=== PATIENT | male | born 1980 | race Two or more races ===

== ENCOUNTER 2022-10-13 23:43 | Inpatient (IN) | payer OTHER ==
[~2022-10-13] VITALS: Ht 165.1 cm; Wt 89.6 kg
[2022-10-14 00:27] LABS: Basophils # (auto) 0 10 ^3/uL (0-0.2); Basophils % (auto) 0.3 % (0.0-2.0); Eosinophils # (auto) 0 10 ^3/uL (0-0.8); Hematocrit 40.5 % (41.0-53.0); Hemoglobin 13.4 g/dL (13.5-17.5); Lymphocytes # (auto) 1.5 10 ^3/uL (0.4-5.4); Lymphocytes % (auto) 9.4 % (10.0-50.0); Mean Corpuscular Hemoglobin 28.6 pg (28.0-32.0); Mean Corpuscular Volume 86.5 fL (80.0-100.0); Monocytes # (auto) 1.6 10 ^3/uL (0-1.3); Monocytes % (auto) 9.4 % (0.0-12.0); Neutrophils # (auto) 13.3 10 ^3/uL (1.6-8.6); Neutrophils % (auto) 80.9 % (37.0-80.0); Red Blood Cells 4.68 10^6/uL (4.5-5.90); Red Cell Distribution Width 12.5 % (11.8-14.3); White Blood Cell 16.5 10^3/uL (4.4-10.8)
[2022-10-14] MEDS ORDERED: VANCOMYCIN 1GM/250ML 250 ML IV ONE (00:30)
[2022-10-14] MEDS ORDERED: PIPERACILLIN-TAZOB 3.375GM 100 ML IV ONE (00:30)
[2022-10-14 00:39] LABS: BUN/Creatinine Ratio 12.2; Calcium 9.2 mg/dL (8.5-10.1); Potassium 4.3 mmol/L (3.5-5.1)
[2022-10-14 00:42] LABS: Bilirubin, Total 0.5 mg/dL (0.2-1.0)
[2022-10-14] MEDS ORDERED: MORPHINE SULFATE INJ 2 MG/ml SYRG IV PRN (07:00)
[2022-10-14] MEDS ORDERED: DEXTROSE (50%) 50ML SYRG IV PRN (07:00)
[2022-10-14] MEDS ORDERED: VANCOMYCIN PER PHARMACY 0 MG IV SCH (07:00)
[2022-10-14] MEDS ORDERED: NITROGLYCERIN 0.4 MG SL TAB SL PRN (07:00)
[2022-10-14] MEDS: ENOXAPARIN SOD 40 MG/0.4 ML SYRINGE SC SCH (10:00)
[2022-10-14] MEDS: VANCOMYCIN 1GM/250ML 250 ML IV SCH ×2 (10:00→21:55)
[2022-10-14] MEDS: ACCU-CHEK COMFORT CURVE STRIP VI SCH ×4 (11:30→22:06)
[2022-10-14] MEDS: InsuLIN REG 1unit/0.01ml Soln (100units/ml) SC SCH ×4 (11:30→22:07)
[2022-10-14] MEDS: HYDROcodone-ACET 10/325MG TAB PO PRN (21:55)
[2022-10-14 22:00] VITALS: BP 150/90
[2022-10-15] MEDS: HYDROcodone-ACET 10/325MG TAB PO PRN (04:53)
[2022-10-15 05:00] VITALS: BP 125/76
[2022-10-15] MEDS: ACCU-CHEK COMFORT CURVE STRIP VI SCH ×4 (05:50→22:49)
[2022-10-15] MEDS: InsuLIN REG 1unit/0.01ml Soln (100units/ml) SC SCH ×4 (05:54→22:53)
[2022-10-15 06:42] LABS: Basophils # (auto) 0.1 10 ^3/uL (0-0.2); Basophils % (auto) 0.3 % (0.0-2.0); Eosinophils # (auto) 0 10 ^3/uL (0-0.8); Hematocrit 38.1 % (41.0-53.0); Hemoglobin 13.1 g/dL (13.5-17.5); Lymphocytes # (auto) 1.5 10 ^3/uL (0.4-5.4); Mean Corpuscular Hemoglobin 29.1 pg (28.0-32.0); Mean Corpuscular Hgb Conc. 34.3 g/dL (32.0-36.0); Mean Corpuscular Volume 84.9 fL (80.0-100.0); Monocytes # (auto) 1.9 10 ^3/uL (0-1.3); Monocytes % (auto) 11.1 % (0.0-12.0); Neutrophils # (auto) 13.4 10 ^3/uL (1.6-8.6); Neutrophils % (auto) 79.6 % (37.0-80.0); Red Blood Cells 4.48 10^6/uL (4.5-5.90); Red Cell Distribution Width 12.5 % (11.8-14.3); White Blood Cell 16.8 10^3/uL (4.4-10.8)
[2022-10-15 06:45] LABS: Potassium 3.5 mmol/L (3.5-5.1)
[2022-10-15 06:57] LABS: Albumin 2.7 g/dL (3.4-5.0); BUN/Creatinine Ratio 20.8; Bilirubin, Total 0.7 mg/dL (0.2-1.0); Calcium 8.7 mg/dL (8.5-10.1)
[2022-10-15] MEDS ORDERED: HYDROcodone-ACET 5/325MG TAB PO PRN ×2 (07:00)
[2022-10-15] MEDS ORDERED: MORPHINE SULFATE INJ 2 MG/ml SYRG IV PRN (07:00)
[2022-10-15] MEDS ORDERED: BUPIVACAINE W/ EPINEPH 0.5% MPF 30ML VIAL IJ ONE (08:45)
[2022-10-15] MEDS ORDERED: LIDOCAINE 1% HCL (LOCAL ANESTH.) INJ 20ML MDV ID ONE (08:45)
[2022-10-15 09:00] VITALS: BP 143/84
[2022-10-15] MEDS ORDERED: BUPIVACAINE 0.5% P/F INJ 10 ML VIAL ONE (09:20)
[2022-10-15] MEDS ORDERED: LIDOCAINE 1%HCL (LOCAL ANESTH) 10 ML MDV ONE (09:20)
[2022-10-15] MEDS: metFORMIN HYDROCHLORIDE 850 MG TAB PO SCH (10:08)
[2022-10-15] MEDS: ENOXAPARIN SOD 40 MG/0.4 ML SYRINGE SC SCH (10:08)
[2022-10-15] MEDS: VANCOMYCIN 1GM/250ML 250 ML IV SCH ×2 (10:09→22:46)
[2022-10-15] MEDS: ACETAMINOPHEN 325 MG TAB PO PRN (12:48)
[2022-10-15 12:49] VITALS: BP 138/81
[2022-10-15 17:10] VITALS: BP 142/87
[2022-10-15 22:00] VITALS: BP 134/83
[2022-10-16] MEDS: ACETAMINOPHEN 325 MG TAB PO PRN ×2 (00:33→21:57)
[2022-10-16 04:30] VITALS: BP 146/89
[2022-10-16] MEDS: ACCU-CHEK COMFORT CURVE STRIP VI SCH ×4 (06:49→21:59)
[2022-10-16] MEDS: InsuLIN REG 1unit/0.01ml Soln (100units/ml) SC SCH ×4 (06:51→22:14)
[2022-10-16 09:00] VITALS: BP 139/80
[2022-10-16 09:18] LABS: Basophils # (auto) 0 10 ^3/uL (0-0.2); Basophils % (auto) 0.2 % (0.0-2.0); Eosinophils # (auto) 0 10 ^3/uL (0-0.8); Hematocrit 36.8 % (41.0-53.0); Hemoglobin 12.3 g/dL (13.5-17.5); Lymphocytes # (auto) 1.2 10 ^3/uL (0.4-5.4); Lymphocytes % (auto) 6.9 % (10.0-50.0); Mean Corpuscular Hemoglobin 28.5 pg (28.0-32.0); Mean Corpuscular Hgb Conc. 33.4 g/dL (32.0-36.0); Mean Corpuscular Volume 85.1 fL (80.0-100.0); Monocytes # (auto) 1.4 10 ^3/uL (0-1.3); Monocytes % (auto) 8.1 % (0.0-12.0); Neutrophils % (auto) 84.8 % (37.0-80.0); Nucleated Red Blood Cells % 0.1 %; Red Blood Cells 4.32 10^6/uL (4.5-5.90); Red Cell Distribution Width 12.4 % (11.8-14.3); White Blood Cell 17.7 10^3/uL (4.4-10.8)
[2022-10-16 09:43] LABS: Albumin 2.4 g/dL (3.4-5.0); Calcium 8.2 mg/dL (8.5-10.1); Potassium 3.8 mmol/L (3.5-5.1)
[2022-10-16 09:46] LABS: BUN/Creatinine Ratio 19.4; Bilirubin, Total 0.7 mg/dL (0.2-1.0); Total Protein 5.9 g/dL (6.4-8.2)
[2022-10-16] MEDS: VANCOMYCIN 1GM/250ML 250 ML IV SCH ×2 (09:49→19:16)
[2022-10-16] MEDS: metFORMIN HYDROCHLORIDE 850 MG TAB PO SCH (09:50)
[2022-10-16] MEDS: ENOXAPARIN SOD 40 MG/0.4 ML SYRINGE SC SCH (09:50)
[2022-10-16 13:00] VITALS: BP 131/83
[2022-10-16 17:00] VITALS: BP 130/64
[2022-10-16 22:00] VITALS: BP 147/85
[2022-10-17] MEDS: VANCOMYCIN 1GM/250ML 250 ML IV SCH ×2 (02:54→10:40)
[2022-10-17 05:00] VITALS: BP 137/82
[2022-10-17] MEDS: ACCU-CHEK COMFORT CURVE STRIP VI SCH ×2 (06:29→11:44)
[2022-10-17] MEDS: InsuLIN REG 1unit/0.01ml Soln (100units/ml) SC SCH ×2 (06:30→11:45)
[2022-10-17 06:38] LABS: Basophils # (auto) 0 10 ^3/uL (0-0.2); Basophils % (auto) 0.2 % (0.0-2.0); Eosinophils # (auto) 0 10 ^3/uL (0-0.8); Eosinophils % (auto) 0.1 % (0.0-7.0); Hemoglobin 12.7 g/dL (13.5-17.5); Lymphocytes # (auto) 1.5 10 ^3/uL (0.4-5.4); Lymphocytes % (auto) 9.5 % (10.0-50.0); Mean Corpuscular Hgb Conc. 34.3 g/dL (32.0-36.0); Mean Corpuscular Volume 84.6 fL (80.0-100.0); Monocytes # (auto) 1.8 10 ^3/uL (0-1.3); Neutrophils # (auto) 12.8 10 ^3/uL (1.6-8.6); Neutrophils % (auto) 79.2 % (37.0-80.0); Nucleated Red Blood Cells % 0.7 %; Red Blood Cells 4.37 10^6/uL (4.5-5.90); Red Cell Distribution Width 12.5 % (11.8-14.3); White Blood Cell 16.1 10^3/uL (4.4-10.8)
[2022-10-17 07:03] LABS: Albumin 2.2 g/dL (3.4-5.0); Calcium 8.5 mg/dL (8.5-10.1); Potassium 3.8 mmol/L (3.5-5.1)
[2022-10-17 07:06] LABS: Bilirubin, Total 0.6 mg/dL (0.2-1.0)
[2022-10-17 09:00] VITALS: BP 134/85
[2022-10-17] MEDS ORDERED: CIPR500T4 PO (09:11)
[2022-10-17] MEDS: ENOXAPARIN SOD 40 MG/0.4 ML SYRINGE SC SCH (10:40)
[2022-10-17] MEDS: metFORMIN HYDROCHLORIDE 850 MG TAB PO SCH (10:40)
[2022-10-17 13:00] VITALS: BP 133/98
== END 2022-10-17 13:15 | DRG 872 ==
LOC: ER 23:43 → EEVIPCON 23:43 → OVERFLOW 10-14 06:53 → WEST WING 10-14 21:23
PROVIDERS: ADMIT Internal Medicine; ATTEND Internal Medicine
PROC: 0W980ZZ Drainage of Chest Wall, Open Approach (ICD-10-PCS; principal; 2022-10-15)
DX: A41.9 Sepsis, unspecified organism (principal); L02.212 Cutaneous abscess of back [any part, except buttock and flank]; L03.312 Cellulitis of back [any part except buttock and flank]; E11.628 Type 2 diabetes mellitus with other skin complications; Z20.822 Contact with and (suspected) exposure to COVID-19; D72.829 Elevated white blood cell count, unspecified
CPT/HCPCS: 36415; 71250; 80053; 80202; 82962; 85025; 87040; 87077; 87186; 87205; 87426; G0378; J1815; J2001; J3490

== ENCOUNTER 2022-10-21 17:47 | Inpatient (IN) | payer OTHER ==
[~2022-10-21] VITALS: Ht 167.6 cm; Wt 90.8 kg
[~2022-10-21 17:47] MED LIST: CIPR500T4 PO
[2022-10-21 19:22] LABS: Hematocrit 39.5 % (41.0-53.0); Hemoglobin 13.5 g/dL (13.5-17.5); Mean Corpuscular Hemoglobin 28.3 pg (28.0-32.0); Mean Corpuscular Hgb Conc. 34.1 g/dL (32.0-36.0); Mean Corpuscular Volume 83.2 fL (80.0-100.0); Red Blood Cells 4.75 10^6/uL (4.5-5.90); Red Cell Distribution Width 12.7 % (11.8-14.3); White Blood Cell 11.1 10^3/uL (4.4-10.8)
[2022-10-21 19:27] LABS: Basophils % (manual) 0 (0.0-2.0); Blast Cells 0; Eosinophils % (manual) 0 (0-7); Myelocytes % 0; Promyelocytes % 0; Reactive Lymphocytes 0
[2022-10-21 19:45] LABS: Albumin 2.6 g/dL (3.4-5.0); Calcium 8.7 mg/dL (8.5-10.1); Potassium 3.7 mmol/L (3.5-5.1)
[2022-10-21 19:47] LABS: Bilirubin, Total 0.3 mg/dL (0.2-1.0); Total Protein 7.1 g/dL (6.4-8.2)
[2022-10-21 20:30] LABS: Band Neutrophils % (manual) 8; Lymphocytes % (manual) 20 (10.0-50.0); Metamyelocytes % 1; Monocytes % (manual) 7 (0-12)
[2022-10-21] MEDS ORDERED: VANCOMYCIN 1GM/250ML 250 ML IV ONE (21:15)
[2022-10-21] MEDS ORDERED: IOHEXOL 350 MG/ML 100ML IJ ONE (21:54)
[2022-10-22] MEDS ORDERED: ONDANSETRON HCL 4 MG/2 ML VIAL IV ONE (01:00)
[2022-10-22] MEDS ORDERED: MORPHINE SULFATE 4 MG/ML SYR/VIAL IV ONE (01:00)
[2022-10-22] MEDS ORDERED: NITROGLYCERIN 0.4 MG SL TAB SL PRN (03:30)
[2022-10-22] MEDS ORDERED: MORPHINE SULFATE INJ 2 MG/ml SYRG IV PRN (03:30)
[2022-10-22] MEDS ORDERED: VANCOMYCIN PER PHARMACY 0 MG IV SCH (03:30)
[2022-10-22] MEDS: HYDROcodone-ACET 10/325MG TAB PO PRN ×3 (05:50→15:59)
[2022-10-22] MEDS ORDERED: VANCOMYCIN 1GM/250ML 250 ML IV SCH (10:00)
[2022-10-22] MEDS: ENOXAPARIN SOD 40 MG/0.4 ML SYRINGE SC SCH (10:51)
[2022-10-22] MEDS: VANCOMYCIN 1GM/250ML 250 ML IV SCH ×2 (11:26→20:56)
[2022-10-22] MEDS: metFORMIN HYDROCHLORIDE 850 MG TAB PO SCH ×2 (11:30→16:39)
[2022-10-22] MEDS ORDERED: MORPHINE SULFATE 4 MG/ML SYR/VIAL IV PRN (18:00)
[2022-10-22] MEDS ORDERED: ONDANSETRON HCL 4 MG/2 ML VIAL IV PRN (18:00)
[2022-10-22] MEDS: InsuLIN REG 1unit/0.01ml Soln (100units/ml) SC SCH ×2 (19:10→23:44)
[2022-10-22] MEDS ORDERED: DEXTROSE (50%) 50ML SYRG IV PRN (19:15)
[2022-10-22] MEDS: ACCU-CHEK COMFORT CURVE STRIP VI SCH (20:56)
[2022-10-22] MEDS: MORPHINE SULFATE INJ 2 MG/ml SYRG IV PRN (21:11)
[2022-10-22 22:00] VITALS: BP 128/77
[2022-10-22] MEDS: HYDROcodone-ACET 5/325MG TAB PO PRN (22:51)
[2022-10-23] VITALS: BP 128/77
[2022-10-23] MEDS: MORPHINE SULFATE INJ 2 MG/ml SYRG IV PRN ×4 (00:43→21:38)
[2022-10-23] MEDS: ACCU-CHEK COMFORT CURVE STRIP VI SCH ×6 (04:38→21:39)
[2022-10-23] MEDS: InsuLIN REG 1unit/0.01ml Soln (100units/ml) SC SCH ×5 (04:40→21:51)
[2022-10-23 05:00] VITALS: BP 111/64
[2022-10-23] MEDS: VANCOMYCIN 1GM/250ML 250 ML IV SCH ×3 (06:55→21:37)
[2022-10-23] MEDS: ENOXAPARIN SOD 40 MG/0.4 ML SYRINGE SC SCH (08:24)
[2022-10-23 09:00] VITALS: BP 124/79
[2022-10-23] MEDS: HYDROcodone-ACET 5/325MG TAB PO PRN (12:01)
[2022-10-23 13:00] VITALS: BP 135/84
[2022-10-23 16:55] VITALS: BP 135/88
[2022-10-23 22:00] VITALS: BP 135/82
[2022-10-23] MEDS: HYDROcodone-ACET 10/325MG TAB PO PRN (22:00)
[2022-10-24] MEDS: InsuLIN REG 1unit/0.01ml Soln (100units/ml) SC SCH ×7 (00:42→23:57)
[2022-10-24 05:04] VITALS: BP 124/76
[2022-10-24] MEDS: ACCU-CHEK COMFORT CURVE STRIP VI SCH ×7 (05:52→23:52)
[2022-10-24] MEDS: VANCOMYCIN 1GM/250ML 250 ML IV SCH (05:52)
[2022-10-24 09:00] VITALS: BP 117/73
[2022-10-24] MEDS: metFORMIN HYDROCHLORIDE 850 MG TAB PO SCH (10:00)
[2022-10-24] MEDS: ENOXAPARIN SOD 40 MG/0.4 ML SYRINGE SC SCH (10:00)
[2022-10-24] MEDS ORDERED: MEPERIDINE HCL (25 MG/ML) 1ML VIAL ONE ×2 (10:07→10:53)
[2022-10-24] MEDS ORDERED: fentaNYL CITRATE 100 MCG/2 ML VL ONE (10:07)
[2022-10-24] MEDS ORDERED: MIDAZOLAM HCL 2MG/2ML 2ml VIAL (1mg/ml) ONE (10:08)
[2022-10-24] MEDS ORDERED: DexAMETHasone SOD PHOS 10MG/1ML VIAL INJ ONE (10:52)
[2022-10-24] MEDS ORDERED: PROPOFOL 10 MG/ML 20 ML IV ONE (10:53)
[2022-10-24] MEDS ORDERED: LIDOCAINE HCL (LOCAL ANESTH.) 0.5 % 50ML MDV IJ ONE (11:00)
[2022-10-24] MEDS ORDERED: BUPIVACAINE 0.25% INJ 50ML VIAL ONE (11:00)
[2022-10-24] MEDS ORDERED: LIDOCAINE 1% (LOCAL ANESTH.) PF 5ml SDV ONE (11:03)
[2022-10-24] MEDS ORDERED: ONDANSETRON HCL 4 MG/2 ML VIAL IV PRN (11:15)
[2022-10-24] MEDS ORDERED: ePHEDrine SULFATE 50 MG/ML AMP IV PRN (11:15)
[2022-10-24] MEDS ORDERED: ACCU-CHEK COMFORT CURVE STRIP VI ONE (11:15)
[2022-10-24] MEDS ORDERED: LABETALOL HCL 5 MG/ML 4ML SYRINGE IV PRN (11:15)
[2022-10-24] MEDS ORDERED: KETOROLAC TROMETH 30 MG/ML 1ML VIAL IV ONE (11:15)
[2022-10-24] MEDS ORDERED: hydrALAZINE HCL 20 MG/ML VL IV PRN (11:15)
[2022-10-24] MEDS ORDERED: MORPHINE SULFATE 4 MG/ML SYR/VIAL IV PRN (11:15)
[2022-10-24] MEDS ORDERED: MIDAZOLAM HCL 2MG/2ML 2ml VIAL (1mg/ml) IV PRN (11:15)
[2022-10-24] MEDS: HYDROmorphone HCL 2 MG/ML VL/or syr IV PRN ×4 (11:53→12:23)
[2022-10-24] MEDS: levoFLOXacin 500MG 100 ML IV SCH (12:59)
[2022-10-24] MEDS: metroNIDAZOLE 500MG/100ML 100 ML IV SCH ×2 (15:15→20:44)
[2022-10-24 17:10] VITALS: BP 124/86
[2022-10-24] MEDS: HYDROcodone-ACET 5/325MG TAB PO PRN (17:35)
[2022-10-24] MEDS: DOCUSATE SOD 100 MG CAP PO PRN (20:43)
[2022-10-24] MEDS: MORPHINE SULFATE INJ 2 MG/ml SYRG IV PRN (20:44)
[2022-10-24 22:00] VITALS: BP 119/73
[2022-10-25 05:04] VITALS: BP 109/71
[2022-10-25] MEDS: MORPHINE SULFATE INJ 2 MG/ml SYRG IV PRN ×3 (05:18→17:46)
[2022-10-25] MEDS: ACCU-CHEK COMFORT CURVE STRIP VI SCH ×5 (05:19→19:50)
[2022-10-25] MEDS: metroNIDAZOLE 500MG/100ML 100 ML IV SCH (05:19)
[2022-10-25] MEDS: InsuLIN REG 1unit/0.01ml Soln (100units/ml) SC SCH ×5 (05:39→19:54)
[2022-10-25 08:56] VITALS: BP 119/78
[2022-10-25] MEDS: metFORMIN HYDROCHLORIDE 850 MG TAB PO SCH (09:16)
[2022-10-25] MEDS: levoFLOXacin 500MG 100 ML IV SCH (09:17)
[2022-10-25] MEDS: ENOXAPARIN SOD 40 MG/0.4 ML SYRINGE SC SCH (09:17)
[2022-10-25] MEDS: DOCUSATE SOD 100 MG CAP PO PRN (09:27)
[2022-10-25] MEDS: HYDROcodone-ACET 10/325MG TAB PO PRN ×2 (11:55→19:50)
[2022-10-25 12:48] VITALS: BP 121/69
[2022-10-25 17:00] VITALS: BP 125/81
[2022-10-25 22:00] VITALS: BP 114/74
[2022-10-26] MEDS: MORPHINE SULFATE INJ 2 MG/ml SYRG IV PRN
[2022-10-26] MEDS: ACCU-CHEK COMFORT CURVE STRIP VI SCH ×4 (00:24→12:09)
[2022-10-26 05:21] VITALS: BP 113/74
[2022-10-26] MEDS: InsuLIN REG 1unit/0.01ml Soln (100units/ml) SC SCH ×4 (06:24→12:07)
[2022-10-26] MEDS: HYDROcodone-ACET 10/325MG TAB PO PRN ×2 (06:38→12:10)
[2022-10-26 09:00] VITALS: BP 107/74
[2022-10-26] MEDS: ENOXAPARIN SOD 40 MG/0.4 ML SYRINGE SC SCH (09:30)
[2022-10-26] MEDS: metFORMIN HYDROCHLORIDE 850 MG TAB PO SCH (09:30)
[2022-10-26] MEDS: levoFLOXacin 500MG 100 ML IV SCH (09:30)
[2022-10-26] MEDS ORDERED: CIPR500T4 PO ×2 (11:40)
[2022-10-26 13:10] VITALS: BP 120/82
== END 2022-10-26 13:55 | disposition home or self-care (01) | DRG 602 ==
LOC: ER 17:47 → EEVIPCON 17:47 → OVERFLOW 10-22 03:34 → CENTRAL 10-22 22:00
PROVIDERS: ADMIT Internal Medicine; ATTEND Internal Medicine
PROC: 0J960ZZ Drainage of Chest Subcutaneous Tissue and Fascia, Open Approach (ICD-10-PCS; principal; 2022-10-24 10:34)
DX: L02.212 Cutaneous abscess of back [any part, except buttock and flank] (principal); J86.9 Pyothorax without fistula; Z20.822 Contact with and (suspected) exposure to COVID-19; E11.9 Type 2 diabetes mellitus without complications; F12.90 Cannabis use, unspecified, uncomplicated; Z88.0 Allergy status to penicillin
CPT/HCPCS: 36415; 71260; 80053; 80202; 82565; 82962; 83605; 85007; 85027; 86850; 86900; 86901; 87040; 87077; 87081; 87186; 87205; 87426; 96365; 96375; A4565; G0378; J1100; J1815; J1956; J2250; J2405; J2704; J3490

== ENCOUNTER 2022-10-27 20:26 | Emergency (ER) | payer OTHER ==
[~2022-10-27] VITALS: Ht 167.6 cm; Wt 100.0 kg
[2022-10-27] MEDS ORDERED: VANCOMYCIN 1GM/250ML 250 ML IV ONE (21:15)
[2022-10-27] MEDS ORDERED: PIPERACILLIN-TAZOB 3.375GM 100 ML IV ONE (21:15)
[2022-10-27 21:59] LABS: Basophils # (auto) 0 10 ^3/uL (0-0.2); Basophils % (auto) 0.4 % (0.0-2.0); Eosinophils # (auto) 0.1 10 ^3/uL (0-0.8); Hematocrit 36.7 % (41.0-53.0); Monocytes # (auto) 0.7 10 ^3/uL (0-1.3); Nucleated Red Blood Cells % 0.1 %; Red Cell Distribution Width 12.5 % (11.8-14.3); White Blood Cell 8.7 10^3/uL (4.4-10.8)
[2022-10-27 22:01] LABS: Eosinophils % (auto) 0.7 % (0.0-7.0); Hemoglobin 12.5 g/dL (13.5-17.5); Lymphocytes # (auto) 2.8 10 ^3/uL (0.4-5.4); Lymphocytes % (auto) 31.7 % (10.0-50.0); Mean Corpuscular Hgb Conc. 33.9 g/dL (32.0-36.0); Mean Corpuscular Volume 85.5 fL (80.0-100.0); Neutrophils # (auto) 5.1 10 ^3/uL (1.6-8.6); Neutrophils % (auto) 59.2 % (37.0-80.0)
[2022-10-27 22:19] LABS: Albumin 2.9 g/dL (3.4-5.0); BUN/Creatinine Ratio 12.3; Calcium 8.8 mg/dL (8.5-10.1); Potassium 4.8 mmol/L (3.5-5.1)
[2022-10-27 22:28] LABS: INR 0.96 (0.9-1.15); Partial Thromboplastin Time 26.5 sec (24.6-33.4)
[2022-10-27] MEDS ORDERED: MORPHINE SULFATE 4 MG/ML SYR/VIAL IV ONE (22:30)
[2022-10-27] MEDS ORDERED: ONDANSETRON HCL 4 MG/2 ML VIAL IV ONE (22:30)
[2022-10-27 22:46] LABS: CRP High Sensitivity 1.4 mg/dL (< 0.3)
[2022-10-27 23:02] LABS: Bilirubin, Total 0.2 mg/dL (0.2-1.0); Total Protein 7.9 g/dL (6.4-8.2)
[2022-10-28] MEDS ORDERED: InsuLIN REG 1unit/0.01ml Soln (100units/ml) IV ONE (02:15)
[2022-10-28 04:00] VITALS: BP 102/63
== END 2022-10-28 05:02 ==
LOC: ER 20:26 → EEVIPCON 20:26 → ER 10-28 05:02
DX: L02.212 Cutaneous abscess of back [any part, except buttock and flank] (principal); L03.312 Cellulitis of back [any part except buttock and flank]; E11.9 Type 2 diabetes mellitus without complications; Z79.2 Long term (current) use of antibiotics; Z88.0 Allergy status to penicillin
CPT/HCPCS: 36415; 71045; 80053; 82962; 83605; 83690; 83930; 84484; 85025; 85610; 85652; 85730; 86141; 87040; 96365; 96366; 96368; 96375; 99285; J1815; J2270; J2405; J2543; J3370